=== PATIENT | female | born 1975 | race African-American/Black ===

== ENCOUNTER 2016-08-25 10:37 | Emergency (ER) | payer OTHER ==
[2016-08-25 11:05] VITALS: BP 116/77; PULSE 83; TEMP 97.8; BMI 32.3
--- NOTE | 2016-08-25 11:59 | PDOC ---
History of Present Illness - General Chief Complaint: Cold Symptoms Stated Complaint: FEVER, COLD Time Seen by Provider: 08/25/16 11:13 - History of Present Illness Initial Comments: 08/25/16 11:55 CHIEF COMPLAINT: Fever, cold symptoms HISTORY OF PRESENT ILLNESS: 40-year-old female with no significant past medical history presents to [facility] with fever and cold symptoms 3 days. Patient states "my symptoms are getting better I don't have a fever anymore." Patient states she did not take her temperature but "felt hot", but now that feeling has resolved. Patient states that she had sore throat, sneezing, runny nose, and congestion for three days and was taking Motrin for fever. Patient states she only now has sinus pressure to her head. Patient denies nausea, vomiting, diarrhea, chest pain, or shortness of breath. No recent travel or sick contacts. PAST MEDICAL HISTORY: Denies past medical history FAMILY HISTORY: Denies SOCIAL HISTORY:Denies tobacco, alcohol, illicit drug use. SURGICAL HISTORY: ALLERGIES: azithromycin REVIEW OF SYSTEMS General/Constitutional: Fever x 2 days, now resolved. Denies weakness, weight change. HEENT: Denies change in vision. Denies ear pain or discharge. Denies sore throat. Cardiovascular: Denies chest pain or shortness of breath. Respiratory: Denies cough, wheezing, or hemoptysis. Gastrointestinal: Denies nausea, vomiting, diarrhea or constipation. Denies rectal bleeding. Genitourinary: Denies dysuria, frequency, or change in urination. Musculoskeletal: Denies joint or muscle swelling or pain. Denies neck or back pain. Skin and breasts: Denies rash or easy bruising. Neurologic: "I feel like I have a sinus headache." Denies vertigo, loss of consciousness, or loss of sensation. PHYSICAL EXAM General Appearance: Well-appearing, appropriately dressed. No apparent distress , no intoxication. HEENT: EOMI, PERRLA, normal ENT inspection, normal voice, TMs normal, pharynx normal. No conjunctival pallor. No photophobia, scleral icterus. Neck: Supple. Trachea midline. Respiratory/Chest: Lungs CTAB. Cardiovascular: RRR. S1, S2. Integumentary: Appropriate color, dry, warm. 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 Fully oriented, alert. Appropriate mood/affect. No appreciable EOM palsy, facial droop or sensory deficit. Past History - Past Medical History Allergies/Adverse Reactions: Allergies Allergy/AdvReac Type Severity Reaction Status Date / Time azithromycin [From Zithromax] Allergy Intermediate Difficulty Verified 08/25/16 11:03 Breathing Home Medications: Ambulatory Orders Diphenhydramine HCl [Benadryl -] 25 mg PO Q6H PRN #20 capsule 08/25/16 Pseudoephedrine HCl [Sudafed 12-Hour] 120 mg PO DAILY #14 tablet.er 08/25/16 Suicide Attempt (Hx): No Other medical history: none - Surgical History Abdominal Surgery: Yes (HERNIA REPAIR) - Reproductive History (#): 10 Para: 4 Cervical CA: No Dysfunctional Uterine Bleeding: No Ectopic : No Endometrial CA: No Polycystic Ovaries: No Therapeutic (s) & number: Yes (4) Tubal Ligation: No Spontaneous : 1 - Immunization History Immunization Up to Date: Yes - Psycho/Social/Smoking Cessation Hx Anxiety: No Suicidal Ideation: No Smoking Status: No Smoking History: Never smoked Have you smoked in the past 12 months: No Number of Cigarettes Smoked Daily: 0 Cigars Per Day: 0 Information on smoking cessation initiated: No 'Breaking Loose' booklet given: 12/20/13 Hx Alcohol Use: No Drug/Substance Use Hx: No Substance Use Type: None Hx Substance Use Treatment: No *Physical Exam - Vital Signs Last Vital Signs Temp Pulse Resp BP Pulse Ox 97.8 F 83 18 116/77 97 08/25/16 11:04 08/25/16 11:04 08/25/16 11:04 08/25/16 11:04 08/25/16 11:04 Medical Decision Making - Medical Decision Making 08/25/16 11:58 40 yo F with no PMH presents to ED with fever (now resolved) and cold symptoms x 3 days, with ongoing sinus pressure. Will manage with symptomatic treatment. -Sudafed 120 mg daily -Benadryl q6h PRN congestion Discussed with patient that at this time antibiotics do not appear indicated as symptoms have only been present for 2 days and are already resolving. Advised patient take meds as prescribed and follow up with PMD next week if symptoms persist. Advised patient of signs and symptoms for return to ER; patient verbalized understanding and agrees to plan. *DC/Admit/Observation/Transfer Diagnosis at time of Disposition: Cold - Discharge Dispostion Disposition: HOME Condition at time of disposition: Stable Admit: No - Prescriptions Prescriptions: Diphenhydramine HCl [Benadryl -] 25 mg PO Q6H PRN #20 capsule PRN Reason: congestion Pseudoephedrine HCl [Sudafed 12-Hour] 120 mg PO DAILY #14 tablet.er - Referrals Referrals: Anai Zhou [Primary Care Provider] - - Patient Instructions Printed Discharge Instructions: DI for Influenza -- Adult Additional Instructions: Please take medications as prescribed; follow up with your primary care doctor next week. If you develop fever, nausea, vomiting, diarrhea, or any new or worsening symptoms, please return to the ER.
== END 2016-08-25 13:08 | disposition home or self-care (01) ==
LOC: JERFT 10:37
DX: J00 Acute nasopharyngitis [common cold] (principal)
CPT/HCPCS: 99281-25

== ENCOUNTER 2017-05-17 08:58 | Emergency (ER) | payer OTHER ==
[2017-05-17 09:06] VITALS: BP 145/60; PULSE 67; TEMP 98.2; BMI 34.7
[2017-05-17] MEDS ORDERED: IBUPROFEN 600 MG TABLET (FP) PO ONE (09:53)
[2017-05-17] MEDS ORDERED: IBUPROFEN 400 MG TABLET (FP) PO ONE (10:00)
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
== END 2017-05-17 10:18 | disposition home or self-care (01) ==
LOC: JERFT 08:58
DX: S16.1XXA Strain of muscle, fascia and tendon at neck level, initial encounter (principal); V43.52XA Car driver injured in collision with other type car in traffic accident, initial encounter; Y92.412 Parkway as the place of occurrence of the external cause; Y93.89 Activity, other specified; Y99.8 Other external cause status
CPT/HCPCS: 99281-25

== ENCOUNTER 2017-05-19 21:03 | Emergency (ER) | payer OTHER ==
[2017-05-19 21:17] VITALS: BP 122/81; PULSE 66; TEMP 97.9; BMI 34.8
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
== END 2017-05-19 21:41 | disposition home or self-care (01) ==
LOC: JERFT 21:03
DX: M79.1 Myalgia (principal); V43.52XA Car driver injured in collision with other type car in traffic accident, initial encounter; Y93.89 Activity, other specified; Y92.410 Unspecified street and highway as the place of occurrence of the external cause
CPT/HCPCS: 99281-25

== ENCOUNTER 2017-07-06 09:18 | Emergency (ER) | payer OTHER ==
[2017-07-06 09:58] VITALS: BP 128/75; PULSE 94; TEMP 99.7; BMI 35.2
[2017-07-06] MEDS ORDERED: PENICILLIN G BENZATHINE 1,200,000 UNIT/2 ML PFS IM ONE (10:08)
[2017-07-06] MEDS ORDERED: PENICILLIN G BENZATHINE 2,400,000 UNIT/4 ML PFS ONE (10:13)
--- NOTE | 2017-07-06 10:16 | PDOC ---
History of Present Illness - General Chief Complaint: Sore Throat Stated Complaint: THROAT PAIN Time Seen by Provider: 07/06/17 09:59 History Source: Patient Exam Limitations: No Limitations - History of Present Illness Initial Comments: 07/06/17 10:09 Onset of fevers, sore throat pain, and exudate last night. Daughter was diagnosed yesterday strep throat and feels has same. Timing/Duration: unsure, 24 hours Severity: moderate Associated Symptoms: reports: denies symptoms Past History - Travel Traveled outside of the country in the last 30 days: No Close contact w/someone who was outside of country & ill: No - Past Medical History Allergies/Adverse Reactions: Allergies Allergy/AdvReac Type Severity Reaction Status Date / Time azithromycin [From Zithromax] Allergy Intermediate Difficulty Verified 07/06/17 09:53 Breathing Home Medications: Ambulatory Orders NK [No Known Home Medication] 07/06/17 COPD: No - Surgical History Abdominal Surgery: Yes (HERNIA REPAIR) - Reproductive History (#): 10 Para: 4 Cervical CA: No Dysfunctional Uterine Bleeding: No Ectopic : No Endometrial CA: No Polycystic Ovaries: No Therapeutic (s) & number: Yes (4) Tubal Ligation: No Spontaneous : 1 - Immunization History Immunization Up to Date: Yes - Suicide/Smoking/Psychosocial Hx Smoking Status: No Smoking History: Never smoked Have you smoked in the past 12 months: No Number of Cigarettes Smoked Daily: 0 Cigars Per Day: 0 Information on smoking cessation initiated: No 'Breaking Loose' booklet given: 12/20/13 Hx Alcohol Use: No Drug/Substance Use Hx: No Substance Use Type: None Hx Substance Use Treatment: No Review of Systems - Review of Systems Able to Perform ROS?: Yes Is the patient limited French proficient: Yes Constitutional: Yes: Symptoms Reported, See HPI, Fever, Malaise HEENTM: Yes: Symptoms Reported, See HPI, Nose Congestion, Throat Pain Respiratory: Yes: See HPI. No: Symptoms reported, Cough, Wheezing Musculoskeletal: Yes: Symptoms Reported All Other Systems: Reviewed and Negative *Physical Exam - Vital Signs Last Vital Signs Temp Pulse Resp BP Pulse Ox 99.7 F H 94 H 18 128/75 97 07/06/17 09:51 07/06/17 09:51 07/06/17 09:51 07/06/17 09:51 07/06/17 09:51 - Physical Exam General Appearance: Yes: Nourished, Appropriately Dressed, Apparent Distress HEENT: positive: WAQAR, Normal ENT Inspection, TMs Normal, Pharyngeal Erythema, Tonsillar Exudate, Tonsillar Erythema, Rhinorrhea. negative: Pharynx Normal Neck: positive: Supple, Lymphadenopathy (R), Lymphadenopathy (L) Respiratory/Chest: positive: Lungs Clear, Normal Breath Sounds. negative: Wheezing Extremity: positive: Normal Capillary Refill, Normal Inspection Integumentary: positive: Dry, Warm, Pale Neurologic: positive: milieu coordinator II-XII NML intact, Fully Oriented, Alert, Normal Mood/ Affect, Normal Response, Motor Strength 10/20 Medical Decision Making - Medical Decision Making 07/06/17 10:11 Jaundice, probable strep as daughter was diagnosed with rapid strep positive yesterday. We will treat with Bicillin 1.2 million units IM for one dose. No reaction after 30 minutes *DC/Admit/Observation/Transfer Diagnosis at time of Disposition: Pharyngitis Qualifiers: Pharyngitis/tonsillitis etiology: unspecified etiology Qualified Code(s): J02.9 - Acute pharyngitis, unspecified - Discharge Dispostion Disposition: HOME Condition at time of disposition: Stable Admit: No - Referrals Referrals: Anai Zhou [Primary Care Provider] - - Patient Instructions Printed Discharge Instructions: DI for Pharyngitis/Tonsillopharyngitis -- Adult Additional Instructions: Rest, drink lots of fluids: Teas, water, soups Eat cold things: Ice cream, ice pops, ice chips Saltwater gargles Steamy showers/seem to face break up mucus Avoid contact with others until fevers and pain resolved Lots of handwashing and good hygiene, this is contagious You have been treated with Bicillin LA 1.2 million units injection which is a one-time treatment for strep pharyngitis. You will not need to take any further antibiotics. Tylenol or Motrin for fever and pain Followup with private physician in one to 2 days as needed if not improving Return to emergency department for worsened symptoms, fevers, dehydration - Post Discharge Activity Forms/Work/School Notes: Back to Work
[2017-07-06] MEDS ORDERED: IBUPROFEN 600 MG TABLET (FP) PO ONE (11:13)
== END 2017-07-06 10:29 | disposition home or self-care (01) ==
LOC: JER 09:18
DX: J02.9 Acute pharyngitis, unspecified (principal)
CPT/HCPCS: 96372; 99281-25

== ENCOUNTER 2017-11-14 12:22 | Emergency (ER) | payer OTHER ==
[2017-11-14 12:37] VITALS: BMI 32.9
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
[2017-11-14] MEDS ORDERED: IBUPROFEN 600 MG TABLET (FP) PO ONE ×2 (13:05→13:37)
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
[2017-11-14 16:27] VITALS: BP 119/72; PULSE 69; TEMP 98.6
== END 2017-11-14 16:38 | disposition home or self-care (01) ==
LOC: JER 12:22
DX: S16.1XXA Strain of muscle, fascia and tendon at neck level, initial encounter (principal); V43.52XA Car driver injured in collision with other type car in traffic accident, initial encounter; Y93.89 Activity, other specified; Y92.410 Unspecified street and highway as the place of occurrence of the external cause
CPT/HCPCS: 71045-TC-FY; 72100-TC-FY; 72125-TC; 73110-TC-LR-FY; 84703; 99282-25

== ENCOUNTER 2018-02-16 20:35 | Emergency (ER) | payer OTHER ==
[2018-02-16 20:41] VITALS: BP 135/73; PULSE 75; TEMP 98.3; BMI 40.3
[2018-02-16] MEDS ORDERED: diphenhydrAMINE HCL 25 MG CAPSULE (FP) PO ONE ×2 (21:18→21:24)
--- NOTE | 2018-02-16 21:22 | PDOC ---
History of Present Illness - General Chief Complaint: Rash Stated Complaint: RASH Time Seen by Provider: 02/16/18 20:59 History Source: Patient Exam Limitations: No Limitations - History of Present Illness Initial Comments: 02/16/18 21:17 HISTORY OF PRESENT ILLNESS: This is a 42-year-old woman without significant medical history who presents emergency Department with 1 week of intermittent pruritic papular rash to different parts of her body. She denies any change in lotions, creams, shampoos, conditioners, soaps, body wash, Motrin detergents, fabric softeners, foods or medications. Patient states she has not taken anything for the rash over this week. Patient reports on the rash comes the rash is present for varying amounts of time but is pruritic every time. She denies fevers, chills, shortness of breath or outdoor activities. No recent travel or sick contacts. PAST MEDICAL HISTORY: Denies past medical history SURGICAL HISTORY: Denies ALLERGIES: azithromycin REVIEW OF SYSTEMS General/Constitutional: Denies fever or chills. Denies weakness, weight change. HEENT: Denies change in vision. Denies ear pain or discharge. Denies sore throat. Cardiovascular: Denies chest pain or shortness of breath. Respiratory: Denies cough, wheezing, or hemoptysis. Gastrointestinal: Denies nausea, vomiting, diarrhea or constipation. Denies rectal bleeding. Genitourinary: Denies dysuria, frequency, or change in urination. Musculoskeletal: Denies joint or muscle swelling or pain. Denies neck or back pain. Skin and breasts: pruritic, raised rash or easy bruising. Neurologic: Denies headache, vertigo, loss of consciousness, or loss of sensation. Psychiatric: Denies depression or anxiety. Endocrine: Denies increased thirst. Denies abnormal weight change. Hematologic/Lymphatic: Denies anemia, easy bleeding, or history of blood clots. Allergic/Immunologic: Denies hives or skin allergy. Denies latex allergy. PHYSICAL EXAM General Appearance: Well-appearing, appropriately dressed. No apparent distress , no intoxication. HEENT: EOMI, PERRLA, normal ENT inspection, normal voice, TMs normal, pharynx normal. No conjunctival pallor. No photophobia, scleral icterus. Neck: Supple. Trachea midline. No tenderness, rigidity, carotid bruit, stridor , lymphadenopathy, or thyromegaly. Respiratory/Chest: Lungs CTAB. No shortness of breath, chest tenderness, respiratory distress, accessory muscle use. No crackles, rales, rhonchi, stridor , wheezing, dullness Cardiovascular: RRR. S1, S2. No JVD, murmur, bradycardia, tachycardia. Vascular Pulses: Dorsalis-Pedis (R): 2+, Dorsalis-Pedis (L): 2+ Gastrointestinal/Abdominal: Normal bowel sounds. Abdomen soft, non-distended. No tenderness or rebound tenderness. No organomegaly, pulsatile mass, guarding, hernia, hepatomegaly, splenomegaly. Lymphatic: No adenopathy, tenderness. Musculoskeletal/Extremities: Normal inspection. FROM of all extremities, normal capillary refill. Pelvis Stable. No CVA tenderness. No tenderness to extremities, pedal edema, swelling, erythema or deformity. Integumentary: Pruritic papular rash noted to the lateral aspect of the left upper arm. Scattered papular rash noted to the lower back. 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 Fully oriented, alert. Appropriate mood/affect. Motor strength 5/5. No appreciable EOM palsy, facial droop or sensory deficit. Past History - Past Medical History Allergies/Adverse Reactions: Allergies Allergy/AdvReac Type Severity Reaction Status Date / Time azithromycin [From Zithromax] Allergy Intermediate Difficulty Verified 11/14/17 12:29 Breathing Home Medications: Ambulatory Orders NK [No Known Home Medication] 02/16/18 COPD: No - Surgical History Abdominal Surgery: Yes (HERNIA REPAIR) - Reproductive History (#): 10 Para: 4 Cervical CA: No Dysfunctional Uterine Bleeding: No Ectopic : No Endometrial CA: No Polycystic Ovaries: No Therapeutic (s) & number: Yes (4) Tubal Ligation: No Spontaneous : 1 - Immunization History Immunization Up to Date: Yes - Suicide/Smoking/Psychosocial Hx Smoking Status: No Smoking History: Never smoked Have you smoked in the past 12 months: No Number of Cigarettes Smoked Daily: 0 Cigars Per Day: 0 'Breaking Loose' booklet given: 12/20/13 Hx Alcohol Use: No Drug/Substance Use Hx: No Substance Use Type: None Hx Substance Use Treatment: No *Physical Exam - Vital Signs Last Vital Signs Temp Pulse Resp BP Pulse Ox 98.3 F 75 20 135/73 99 02/16/18 20:39 02/16/18 20:39 02/16/18 20:39 02/16/18 20:39 02/16/18 20:39 Medical Decision Making - Medical Decision Making 02/16/18 21:22 A/P: 42-year-old woman with intermittent papular rash for 1 week Scattered papules presents to the lateral aspect of the left upper arm Scant scattered papules noted to the lower back Patient reports papules are pruritic Benadryl 50mg orally now Discharge home with instructions to take antihistamines and steroid creams. *DC/Admit/Observation/Transfer Diagnosis at time of Disposition: Papular rash - Discharge Dispostion Disposition: HOME Condition at time of disposition: Stable Decision to Admit order: No - Referrals Referrals: Prateek Woods MD [Primary Care Provider] - - Patient Instructions Additional Instructions: Rest, keep cool and dry- avoid strenuous activity or hot /humid environments Less hot showers, no abrasive soaps May use heavy creams like Eucerin or Cetaphil to keep skin moist May apply Aveeno, calamine lotion, gxjg-ldw-yezloyo hydrocortisone creams as needed for symptoms May use Benadryl at night for antihistamine, Zyrtec/ Shira or Claritin for daytime antihistamine use to help with itching May use ndod-lmj-knmptxg hydrocortisone cream on all areas except face Try to identify cause for rash and avoid exposures Followup with PMD in one week if no resolution Make appointment with cab station attendant for evaluation when possible - Post Discharge Activity
== END 2018-02-16 21:40 | disposition home or self-care (01) ==
LOC: JERFT 20:35
DX: R21 Rash and other nonspecific skin eruption (principal)
CPT/HCPCS: 99281-25

== ENCOUNTER 2018-03-20 20:41 | Emergency (ER) | payer OTHER ==
[2018-03-20 20:57] VITALS: BP 117/79; PULSE 90; TEMP 98.8; BMI 35.3
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
== END 2018-03-20 22:18 | disposition home or self-care (01) ==
LOC: JERFT 20:41
DX: S16.1XXA Strain of muscle, fascia and tendon at neck level, initial encounter (principal); V43.52XA Car driver injured in collision with other type car in traffic accident, initial encounter; Y92.488 Other paved roadways as the place of occurrence of the external cause; Y93.89 Activity, other specified; Y99.8 Other external cause status
CPT/HCPCS: 99281-25

== ENCOUNTER 2018-04-20 00:11 | Emergency (ER) | payer OTHER ==
--- NOTE | 2018-04-20 00:39 | PDOC ---
History of Present Illness - General Stated Complaint: HAND INJURY/PAIN Time Seen by Provider: 04/20/18 00:39 History Source: Patient Exam Limitations: No Limitations - History of Present Illness Initial Comments: 04/20/18 00:54 This is a 42 year old female with no known medical history, not on any medications at home, who presents with complaints of right hand/thumb pain. night patient was helping daughter with furniture and moving boxes, when she injured her right thumb. She says she was holding a box and all of a sudden her thumb went backwards. She took Motrin which aided in pain.She woke up the next morning with swelling and warmth of the area, and decreased range of motion, which provoked ER visit. Patient denies numbness, wrist pain, other digit pain, or any other bodily injury. Past History - Past Medical History Allergies/Adverse Reactions: Allergies Allergy/AdvReac Type Severity Reaction Status Date / Time azithromycin [From Zithromax] Allergy Intermediate Difficulty Verified 04/20/18 00:45 Breathing Home Medications: Ambulatory Orders Cyclobenzaprine HCl [Flexeril 10 mg] 10 mg PO HS PRN #10 tablet 03/20/18 Ibuprofen [Motrin -] 600 mg PO TID #30 tablet 03/20/18 COPD: No - Surgical History Abdominal Surgery: Yes (HERNIA REPAIR) - Reproductive History (#): 10 Para: 4 Cervical CA: No Dysfunctional Uterine Bleeding: No Ectopic : No Endometrial CA: No Polycystic Ovaries: No Therapeutic (s) & number: Yes (4) Tubal Ligation: No Spontaneous : 1 - Immunization History Immunization Up to Date: Yes - Suicide/Smoking/Psychosocial Hx Smoking Status: No Smoking History: Never smoked Have you smoked in the past 12 months: No Number of Cigarettes Smoked Daily: 0 Cigars Per Day: 0 'Breaking Loose' booklet given: 12/20/13 Hx Alcohol Use: No Drug/Substance Use Hx: No Substance Use Type: None Hx Substance Use Treatment: No Review of Systems - Review of Systems Able to Perform ROS?: Yes Is the patient limited Sami proficient: Yes Constitutional: No: Chills, Diaphoresis, Fever, Malaise HEENTM: No: Eye Pain, Blurred Vision Respiratory: No: Cough, Orthopnea, Shortness of Breath Cardiac (ROS): No: Chest Pain, Edema, Irregular Heart Rate ABD/GI: No: Abdominal Distended : No: Burning, Dysuria Musculoskeletal: Yes: Joint Pain (pain in right hand ; thumb joint) Neurological: Yes: Weakness. No: Headache, Numbness, Paresthesia, Seizure, Tingling *Physical Exam - Physical Exam General Appearance: Yes: Appropriately Dressed Respiratory/Chest: positive: Lungs Clear, Normal Breath Sounds Cardiovascular: positive: Regular Rhythm, Regular Rate, S1, S2 Extremity: positive: Swelling (right hand swelling, mild erythema of the palmar and thenar area with pain and decreased ROM), Erythema, Inflammation Neurologic: positive: Fully Oriented, Alert, Normal Mood/Affect Medical Decision Making - Medical Decision Making 04/20/18 01:02 This is a 42 year old female with right hand/thumb injury secondary to lifting a box. Rule out fracture, possible sprain. #right hand pain s/p injury: -ibprofen -right hand xray 04/20/18 01:29 -hand xray negative for acute fracture -thumb splint applied -d/c home with outpatient ortho follow up. *DC/Admit/Observation/Transfer Diagnosis at time of Disposition: Sprain of right thumb Qualifiers: Encounter type: initial encounter Sprain of finger site: metacarpophalangeal joint Qualified Code(s): S63.641A - Sprain of metacarpophalangeal joint of right thumb, initial encounter - Discharge Dispostion Disposition: HOME Condition at time of disposition: Improved Decision to Admit order: No - Referrals Referrals: Anai Zhou [Primary Care Provider] - Deangelo Sow DO [Staff Physician] - - Patient Instructions Additional Instructions: Gudelia Joselo, you have been diagnoses with a right thumb sprain. Please continue to use the splint that was applied. We have provided you with information of an orthopedist. If you experience any worsening of symptoms, please return to the emergency room . - Post Discharge Activity
[2018-04-20 00:47] VITALS: BP 120/71; PULSE 68; TEMP 98.5; BMI 35.5
[2018-04-20] MEDS ORDERED: IBUPROFEN 400 MG TABLET (FP) PO ONE ×2 (00:50→01:08)
--- NOTE | 2018-04-20 01:30 | PDOC ---
Attending Attestation - Resident Resident Name: No Kathleen - ED Attending Attestation I have performed the following: I have examined & evaluated the patient, The case was reviewed & discussed with the resident, I agree w/resident's findings & plan, Exceptions are as noted - HPI HPI: 04/20/18 01:27 42-year-old female presents to the ER with traumatic right thumb pain for the past 36 hours. Pain is constant, exacerbated by some movement. Patient reports that she is unable to hold heavy objects with her right hand. Patient is right- handed. - Physicial Exam PE: 04/20/18 01:27 patient is awake and alert, well-appearing nc, atr cta r. thumb: minimal soft tiing at the base of the right thumb with pain on opposition and abduction; No tenderness at the snuff box. Neurovascularly intact distally no rash - Medical Decision Making 04/20/18 01:29 42-year-old female presents with signs and symptoms of acute right thumb sprain. X-ray reveals no evidence of fracture. Will place and thumb splint with outpatient orthopedic follow-up.
== END 2018-04-20 01:45 | disposition home or self-care (01) ==
LOC: JER 00:11
PROC: 2W3GX1Z Immobilization of Right Thumb using Splint (ICD-10-PCS; principal; 2018-04-20)
DX: S63.641A Sprain of metacarpophalangeal joint of right thumb, initial encounter (principal); X50.9XXA Other and unspecified overexertion or strenuous movements or postures, initial encounter; Y93.E6 Activity, residential relocation; Y92.018 Other place in single-family (private) house as the place of occurrence of the external cause; Y99.8 Other external cause status
CPT/HCPCS: 29130; 73110-TC-RT-FY; 99282-25

== ENCOUNTER 2019-01-27 10:14 | Emergency (ER) | payer OTHER ==
[2019-01-27 10:31] VITALS: BP 144/76; PULSE 76; TEMP 98; BMI 35.6
--- NOTE | 2019-01-27 11:28 | PDOC ---
History of Present Illness - General Chief Complaint: Pain Stated Complaint: RT. ARM PAIN Time Seen by Provider: 01/27/19 10:43 History Source: Patient - History of Present Illness Occurred: reports: yesterday Severity: reports: moderate Pain Location: reports: upper extremity Method of Injury: Yes: direct blow Past History - Past Medical History Allergies/Adverse Reactions: Allergies Allergy/AdvReac Type Severity Reaction Status Date / Time azithromycin [From Zithromax] Allergy Intermediate Difficulty Verified 01/27/19 10:28 Breathing Home Medications: Ambulatory Orders Ibuprofen [Motrin -] 600 mg PO TID #30 tablet 03/20/18 COPD: No - Surgical History Abdominal Surgery: Yes (HERNIA REPAIR) - Reproductive History (#): 10 Para: 4 Cervical CA: No Dysfunctional Uterine Bleeding: No Ectopic : No Endometrial CA: No Polycystic Ovaries: No Therapeutic (s) & number: Yes (4) Tubal Ligation: No Spontaneous : 1 - Immunization History Immunization Up to Date: Yes - Suicide/Smoking/Psychosocial Hx Smoking Status: No Smoking History: Never smoked Have you smoked in the past 12 months: No Number of Cigarettes Smoked Daily: 0 Cigars Per Day: 0 'Breaking Loose' booklet given: 12/20/13 Hx Alcohol Use: No Drug/Substance Use Hx: No Substance Use Type: None Hx Substance Use Treatment: No Review of Systems - Review of Systems Musculoskeletal: Yes: Joint Pain. No: Joint Swelling Neurological: No: Numbness, Tingling *Physical Exam - Vital Signs Last Vital Signs Temp Pulse Resp BP Pulse Ox 98 F 76 16 144/76 98 01/27/19 10:29 01/27/19 10:29 01/27/19 10:29 01/27/19 10:29 01/27/19 10:29 - Physical Exam General Appearance: Yes: Appropriately Dressed. No: Apparent Distress HEENT: positive: Normal Voice Neck: positive: Supple Respiratory/Chest: negative: Respiratory Distress Extremity: positive: Normal Inspection, Tender (to ulnar aspect of R elbow, no swelling or deformity, FROMI) Integumentary: positive: Dry, Warm Neurologic: positive: Fully Oriented, Alert, Normal Mood/Affect, Motor Strength 5/5. negative: Sensory Deficit ED Treatment Course - RADIOLOGY Radiology Studies Ordered: Category Date Time Status ELBOW-RIGHT [RAD] Stat Radiology 01/27/19 11:03 Taken Medical Decision Making - Medical Decision Making 01/27/19 11:22 43 yo F, no sig hx, c/o severe pain to medial aspect of R elbow after banging ext against sofa yesterday. States she thinks her joint came out of place and went back in see exam Elbow sprain XR neg -DC w/ sling, OTC meds prn pain -Pmd f/u as needed *DC/Admit/Observation/Transfer Diagnosis at time of Disposition: Elbow sprain Qualifiers: Encounter type: initial encounter Laterality: right Qualified Code(s): S53.401A - Unspecified sprain of right elbow, initial encounter - Discharge Dispostion Disposition: HOME Condition at time of disposition: Good - Referrals - Patient Instructions Printed Discharge Instructions: How to Use a Sling, DI for Elbow Sprain Additional Instructions: Take motrin as needed for pain - Post Discharge Activity Forms/Work/School Notes: Back to Work
== END 2019-01-27 11:34 | disposition home or self-care (01) ==
LOC: JERFT 10:14
DX: S53.401A Unspecified sprain of right elbow, initial encounter (principal); W22.03XA Walked into furniture, initial encounter; Y93.89 Activity, other specified; Y92.008 Other place in unspecified non-institutional (private) residence as the place of occurrence of the external cause
CPT/HCPCS: 73070-TC-RT-FY; 99281-25

== ENCOUNTER 2020-06-16 18:29 | Emergency (ER) | payer OTHER ==
[2020-06-16 18:35] VITALS: BP 148/68; PULSE 70; BMI 38.7
--- OUTSIDE RECORDS SUMMARY | 2020-06-16 18:43 | XMS ---
:1975 Author Organization [facility] Care Team Providers Name Role Phone Monge, Dipti Unavailable Unavailable Monge, Dipti Unavailable Unavailable Monge, Dipti Unavailable Unavailable Monge, Dipti Unavailable Unavailable Monge, Dipti Unavailable Unavailable Monge, Dipti Unavailable Unavailable Monge, Dipti Unavailable Unavailable Monge, Dipti Unavailable Unavailable Monge, Dipti Unavailable Unavailable Monge, Dipti Unavailable Unavailable Monge, Dipti Unavailable Unavailable Florentin, Sang Unavailable [phone] Florentin, Sang Unavailable [phone] Re-disclosure Warning The records that you are about to access may contain information from federally- assisted alcohol or drug abuse programs. If such information is present, then the following federally mandated warning applies: This information has been disclosed to you from records protected by federal confidentiality rules (42 CFR part 2). The federal rules prohibit you from making any further disclosure of this information unless further disclosure is expressly permitted by the written consent of the person to whom it pertains or as otherwise permitted by 42 CFR part 2. A general authorization for the release of medical or other information is NOT sufficient for this purpose. The Federal rules restrict any use of the information to criminally investigate or prosecute any alcohol or drug abuse patient.The records that you are about to access may contain highly sensitive health information, the redisclosure of which is protected by Article 27-F of the [facility] Public Health law. If you continue you may haveaccess to information: Regarding HIV / AIDS; Provided by facilities licensed or operated by the [facility] Office of Mental Health; or Provided by the [facility] Office for People With Developmental Disabilities. If such information is present, then the following [facility] mandated warning applies: This information has been disclosed to you from confidential records which are protected by state law. State law prohibits you from making any further disclosure of this information without the specific written consent of the person to whom it pertains, or as otherwise permitted by law. Any unauthorized further disclosure in violation of state law may result in a fine or half-way sentence or both. A general authorization for the release of medical or other information is NOT sufficient authorization for further disclosure. Medications Description Medication Start Status Indications Patient Fill Procedure Reaction Data Date Instructions Instructions Intervention Source(s) Code take 1 Naproxen take 1 tablet N EXTGEN tablet by 500 MG Oral 2020 by oral route ( oral route 2 Tablet 12:00: 2 times every Cha times every 00 AM day with food Medical day with EDT Center) food Problems Concern Problem Problem Problem Problem Effective Problem Health Data Status Code Name Description Type Dates Status Status Sour ce(s) Description Description M25.511 Pain in PAIN IN Diagnosi 11/12/2019 Nomi t right RIGHT s 08:51:00 Cha shoulder SHOULDER AM EDT Medica l Center Procedures Procedure Procedure Procedure Medication Medication Medication Medicatio n Indications Patient Fill Description Data Date Instructions Description Start Date Status Instruc tions Instructions Source(s) OFFICE/OUT 11/12/2019 NEXTGEN PATIENT 12:00:00 (Sa int VISIT, EST AM EDT - Cha 11/12/2019 Med ical 12:00:00 Cente r) AM EDT Encounters Encounter Providers Location Date Problem Problem Problem Effective [facility] Data Code Name Description Dates Status Status Source (s) Description Description Outpatient Attender: H 11/12 M25.511 Pain in PAIN IN 11/12/2019 right RIGHT 08:51:00 Cha Velez[facility]mit 10:18 shoulder SHOULDER AM EDT Me dical ter: Dipti :00 Center VelezRefer AM rer: Dipti EDT Monge Outpatient Attender: Family 11/11 M25.511 Pain in NEXTGEN OFFICE/OUT [facility] right (Nomi t PATIENT Center 08:51 shoulder Cha VISIT, EST :00 Medical AM Center) EDT Outpatient 11/11 Cha 08:41 Medical :00 Center AM EDT Outpatient 11/11 [facility] 08:41 Medical :00 [place] AM EDT Family history Family Member Diagnosis Date of Diagnosis Age At Onset Description D qian Source(s) Gender Female Asthma 05/06/2007 NEXTGEN ([facility] 12:00:00 AM EST [facility]) Insurance Providers Payer name Policy type Policy ID Covered Covered republican's Policy P komal / Coverage republican ID relationship to [employer] Inf ormation type cuevas AFFINITY O 01 [id number] HEALTH PLAN Plan of Care Planned Activity Planned Date Instructions Description Data Source (s) Naproxen 500 MG take 1 tablet by oral NEX TGEN ([facility] Oral Tablet route 2 times every [facility] day with food Center) Social History Social History Description Effective Dates Description Data Sourc e(s) Type Caffeine Use 11/12/2019 NEXTGEN ([facility] Details 12:00:00 AM EDT [facility]) Smoking Status Unknown if ever 11/12/2019 Unknown if ever NEXTGEN ([facility] Observation smoked 12:00:00 AM EDT smoked [facility]) Vital Signs ID Date Data Source [facility] Name Value Range Interpretation Code Description Data Source(s) Oxygen saturation in 99 % 99 NEXT GEN ([facility] Arterial blood by [facility] Pulse oximetry Center) ID Date Data Source ROMI [facility] ([facility]) Name Value Range Interpretation Code Description Data Source(s) Body mass 36.15 kg/m2 Overweight 36.15 kg/meter(2) NEXTGE N ([facility] index (BMI) [facility] [[facility]] [place]) ID Date Data Source [facility] Name Value Range Interpretation Code Description Data Source(s) Respiratory rate 18 /min 18 /min [facility] ([facility] ) ID Date Data Source [facility] Name Value Range Interpretation Code Description Data Source(s) Body temperature 36.72 Tiffany 98.10 F [facility] ([facility]) ID Date Data Source [facility] ([facility]) Name Value Range Interpretation Code Description Data Source(s) Heart rate 61 /min 61 /min [facility] ([facility] ) ID Date Data Source ROMI [facility] ([facility]) Name Value Range Interpretation Code Description Data Source(s) Diastolic blood 71 mm[Hg] 119/71 mm[Hg] JEANINE N ([facility]) ID Date Data Source [facility] ([facility]) Name Value Range Interpretation Code Description Data Source(s) Systolic blood 119 mm[Hg] 119/71 mm[Hg] [facility] ([facility]) ID Date Data Source [facility] ([facility]) Name Value Range Interpretation Code Description Data Source(s) Body weight 101.[address] [facility] ) ID Date Data Source [facility] ([facility]) Name Value Range Interpretation Code Description Data Source(s) Body height 167.64 cm 66.00 in [facility] ([facility] )
[2020-06-16] MEDS ORDERED: IBUPROFEN 400 MG TABLET (FP) PO ONE (18:56)
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
== END 2020-06-16 20:24 | disposition home or self-care (01) ==
LOC: JERFT 18:29
DX: M62.838 Other muscle spasm (principal)
CPT/HCPCS: 72040-TC; 99284-25

== ENCOUNTER 2021-02-08 02:18 | Emergency (ER) | payer OTHER ==
[2021-02-08 03:31] VITALS: BMI 37.1
[2021-02-08] MEDS ORDERED: IBUPROFEN 600 MG TABLET (FP) PO ONE ×2 (03:48→03:56)
[2021-02-08 08:27] LABS: BASO % 0.7 % (0-2.0); EOS % 0.1 % (0-4.5); HEMATOCRIT 38.2 % (32.4-45.2); HEMOGLOBIN 12.4 GM/dL (10.7-15.3); LYMPH % 21.7 % (8-40); MCHC 32.3 g/dl (32.0-36.0); MEAN CELL VOLUME 80.3 fl (80-96); MEAN PLT VOLUME 9.6 fl (7.5-11.1); MONO % 9.4 % (3.8-10.2); NEUT % 68.1 % (42.8-82.8); PLATELET COUNT 220 10^3/uL (134-434); RBC 4.76 M/mm3 (3.60-5.2); RDW 16.1 % (11.6-15.6); WHITE BLOOD COUNT 4.6 K/mm3 (4.0-10.0)
[2021-02-08 08:52] LABS: CHLORIDE 102 mmol/L (98-107); SODIUM 135 mmol/L (136-145)
[2021-02-08 08:54] LABS: ALBUMIN 3.9 g/dl (3.4-5.0); ANION GAP 8 MMOL/L (8-16); CALCIUM 8.5 mg/dL (8.5-10.1); CO2 25 mmol/L (21-32)
[2021-02-08 08:55] LABS: BLOOD UREA NITROGEN 6.9 mg/dL (7-18); GLUCOSE,RANDOM 97 mg/dL (74-106)
[2021-02-08 08:58] LABS: CREATININE 0.8 mg/dL (0.55-1.3); SGOT/AST 18 U/L (15-37); SGPT/ALT 24 U/L (13-61)
[2021-02-08 08:59] LABS: BILIRUBIN,TOTAL 0.6 mg/dL (0.2-1); TOT PROT 8.1 g/dl (6.4-8.2)
[2021-02-08 09:00] LABS: ALK PHOS 49 U/L (45-117)
[2021-02-08] MEDS ORDERED: CASIRIVIMAB/IMDEVIMAB (REGEN-COV) 600 MG/600 MG (10ML VIAL) IV ONE (10:10)
[2021-02-08] MEDS ORDERED: IMDEVIMAB IVPB ONE (10:12)
[2021-02-08] MEDS ORDERED: ONDANSETRON 4 MG/2 ML VIAL IVPUSH ONE (10:12)
[2021-02-08] MEDS ORDERED: SODIUM CHLORIDE IVPB ONE (10:12)
[2021-02-08] MEDS ORDERED: CASIRIVIMAB IVPB ONE (10:12)
[2021-02-08] MEDS ORDERED: CASIRIVIMAB/IMDEVIMAB 10 ML in SODIUM CHLORIDE 100 ML IVPB ONE (10:17)
[2021-02-08] MEDS ORDERED: ONDANSETRON 4 MG/2 ML VIAL ONE (10:30)
[2021-02-08 11:15] VITALS: TEMP 98.8
[2021-02-08 13:08] VITALS: BP 123/76; PULSE 78
== END 2021-02-08 13:27 | disposition home or self-care (01) ==
LOC: JER 02:18
PROC: 3E033GC Introduction of Other Therapeutic Substance into Peripheral Vein, Percutaneous Approach (ICD-10-PCS; principal; 2021-02-08)
DX: U07.1 COVID-19 (principal)
CPT/HCPCS: 36415; 71045-TC-FY; 80053; 82550; 82553; 84484; 85025; 93005; 93010; 99285-25; C9803; U0003; U0005

== ENCOUNTER 2024-04-23 11:04 | Emergency (ER) | payer OTHER ==
[2024-04-23 11:10] VITALS: BP 124/85; PULSE 84; RESP 20; TEMP 99.1; BMI 33.9
[2024-04-23] MEDS ORDERED: IBUPROFEN 400 MG TABLET (FP) PO ONE (12:56)
[2024-04-23] MEDS ORDERED: guaiFENesin/D-METHORPHAN HB 10 ML UNIT-DOSE CUPS ONE (12:56)
[2024-04-23] MEDS: guaiFENesin/D-METHORPHAN HB 10 ML UNIT-DOSE CUPS PO ONE (13:03)
[2024-04-23] MEDS: IBUPROFEN 400 MG TABLET (FP) PO ONE (13:03)
[2024-04-23 13:42] LABS: THROAT:GRP A STREP NOT DETECTED (NOTDETECTED)
== END 2024-04-23 14:13 | disposition home or self-care (01) ==
LOC: JERFT 11:04
DX: R07.81 Pleurodynia (principal); J06.9 Acute upper respiratory infection, unspecified; R09.82 Postnasal drip; R05.9 Cough, unspecified; R06.2 Wheezing; Z20.822 Contact with and (suspected) exposure to COVID-19
CPT/HCPCS: 0241U-QW; 87651; 93005; 93010; 99284-25

== ENCOUNTER 2024-04-25 09:35 | Emergency (ER) | payer OTHER ==
[2024-04-25] MEDS ORDERED: ONDANSETRON 4 MG/2 ML VIAL ONE (10:11)
[2024-04-25] MEDS ORDERED: ACETAMINOPHEN INJECTION 100 ML ONE (10:11)
[2024-04-25] MEDS: SODIUM CHLORIDE 0.9% 500 ML INFUS.BAG IV ONE ×2 (10:35→12:09)
[2024-04-25] MEDS: ONDANSETRON 4 MG/2 ML VIAL IVPUSH ONE (10:35)
[2024-04-25] MEDS: ACETAMINOPHEN 1000 MG/100 ML BAG IVPB ONE (10:35)
[2024-04-25 10:54] VITALS: RESP 18; BMI 33.9
[2024-04-25 11:53] VITALS: BP 122/68; PULSE 88; TEMP 100.3
[2024-04-25] MEDS ORDERED: KETOROLAC TROMETHAMINE 30 MG/1 ML VIAL ONE (12:03)
[2024-04-25] MEDS: KETOROLAC TROMETHAMINE 30 MG/1 ML VIAL IVPUSH ONE (12:09)
== END 2024-04-25 13:26 | disposition home or self-care (01) ==
LOC: JER 09:35
PROC: 3E033NZ Introduction of Analgesics, Hypnotics, Sedatives into Peripheral Vein, Percutaneous Approach (ICD-10-PCS; principal; 2024-04-25)
PROC: 3E0333Z Introduction of Anti-inflammatory into Peripheral Vein, Percutaneous Approach (ICD-10-PCS; 2024-04-25)
PROC: 3E033GC Introduction of Other Therapeutic Substance into Peripheral Vein, Percutaneous Approach (ICD-10-PCS; 2024-04-25)
DX: J18.9 Pneumonia, unspecified organism (principal); R11.2 Nausea with vomiting, unspecified; R50.9 Fever, unspecified; M79.10 Myalgia, unspecified site; R05.9 Cough, unspecified; R07.89 Other chest pain; Z20.822 Contact with and (suspected) exposure to COVID-19
CPT/HCPCS: 0241U-QW; 71046-TC-FY; 99284-25; J0131